=== PATIENT | male | born 1970 | race Caucasian/White ===

== ENCOUNTER 2019-06-06 01:54 | Emergency (ER) | payer BC ==
[2019-06-06] MEDS ORDERED: Metoprolol Tartrate 5 MG/5 ML VIAL ONE ×2 (02:12→02:25)
[2019-06-06] MEDS ORDERED: Nitroglycerin 0.4 MG TAB 1 EACH ONE (02:12)
[2019-06-06] MEDS ORDERED: Aspirin Chewable 81 MG TAB ONE (02:12)
[2019-06-06 02:18] LABS: #Basophils 0.1 thou/uL (0.0-0.2); #Eosinphils 0.3 thou/uL (0.0-0.7); #Lymphocytes 2.6 thou/uL (1.20-3.40); #Monocytes 0.6 thou/uL (0.11-0.59); #Neutrophils 4.5 thou/uL (1.40-6.50); %Eosinophils 3.4 % (0.0-10.0); %Lymphocytes 32.6 % (21.0-51.0); %Monocytes 7.4 % (0.0-10.0); %Neutrophils 55.7 % (42.0-75.0); Hemoglobin 13.8 g/dL (14.0-18.0); Mean Corpuscular HGB CONC 33.5 g/dL (32.0-36.0); Mean Corpuscular Hemoglobin 31.1 pg (27.0-31.0); Mean Corpuscular Volume 92.8 fL (78.0-98.0); Mean Platelet Volume 7.3 fL (7.4-10.4); Platelet Count 231 thou/uL (130-400); RBC Distribution Width 11.6 % (11.5-14.5); Red Blood Cell (RBC) Count 4.44 mill/uL (4.70-6.10)
[2019-06-06] MEDS ORDERED: Metoprolol Tartrate 50 MG TAB ONE (02:25)
[2019-06-06 02:31] LABS: ALT (SGPT) 20 U/L (8-55); AST (SGOT) 20 U/L (5-34); Albumin 4.1 g/dL (3.5-5.0); Alkaline Phosphatase 54 U/L (40-150); Anion Gap 15 mmol/L (10-20); BUN (Urea Nitrogen) 18 mg/dL (8.9-20.6); Bilirubin, Total 0.3 mg/dL (0.2-1.2); CK (CPK) 251 U/L (30-200); Calc. Creatinine Clearance 0 mL/min (70-130); Calcium 9.2 mg/dL (7.8-10.44); Carbon Dioxide 25 mmol/L (22-29); Estimated GFR-MDRD 62; Globulin 3.1 g/dL (2.4-3.5); Glucose 143 mg/dL (70-105); Potassium 3.5 mmol/L (3.5-5.1); Protein, Total 7.2 g/dL (6.0-8.3); Sodium 140 mmol/L (136-145)
[2019-06-06 02:38] LABS: Chloride 104 mmol/L (98-107)
[2019-06-06 03:08] LABS: CKMB 3.4 ng/mL (0-6.6)
[2019-06-06 03:39] LABS: Bilirubin Negative (Negative); Blood, Urine Negative (Negative); Clarity Clear (Clear); Glucose, Urine (Dipstick) Negative (Negative); Leukocyte Negative (Negative); Nitrite Negative (Negative); Protein, Urine (Dipstick) Negative (Neg-Trace); Urobilinogen 0.2 mg/dL (Less than 2)
[2019-06-06 03:48] LABS: Amphetamine Not Detected (NotDetected); Barbiturates Screen Not Detected (NotDetected); Benzodiazepine Screen Not Detected (NotDetected); Cocaine Metabolite Screen Not Detected (NotDetected); Medtox Control Line Valid? VALID (VALID); Methadone Not Detected (NotDetected); Methamphetamine Not Detected (NotDetected); Opiate Screen Not Detected (NotDetected); Oxycodone Screen Not Detected (NotDetected); Phencyclidine (PCP) Not Detected (NotDetected); THC/Cannabinoid Screen Not Detected (NotDetected); Tricyclic Screen Not Detected (NotDetected)
--- NOTE | 2019-06-06 09:01 | RAD ---
CHEST 1 VIEW: HISTORY: Pain. COMPARISON: None. FINDINGS: Magnified cardiac silhouette due to portable technique. Lungs and pleural spaces are clear. No pneu mothorax or osseous abnormalities. IMPRESSION: No acute cardiopulmonary process. POS: [facility]
== END 2019-06-06 03:42 | disposition short-term general hospital (02) ==
LOC: MADERS 01:54
DX: I21.4 Non-ST elevation (NSTEMI) myocardial infarction (principal); I48.92 Unspecified atrial flutter
CPT/HCPCS: 71045; 80053; 80306; 81003; 82550; 82553; 83880; 84484; 85025; 93005; 94760; 96374

== ENCOUNTER 2019-06-19 15:12 | Outpatient (CLI) | payer BC ==
[2019-06-19 15:34] LABS: INR-International Normal Ratio 2.3; Prothrombin Time 25.2 SEC (12.0-14.7)
== END 2019-06-19 15:13 | disposition home or self-care (01) ==
LOC: MADLABBHPM 15:12
PROVIDERS: ATTEND Family Medicine
DX: Z51.81 Encounter for therapeutic drug level monitoring (principal); Z95.1 Presence of aortocoronary bypass graft; Z79.01 Long term (current) use of anticoagulants
CPT/HCPCS: 36415; 85610

== ENCOUNTER 2022-07-06 11:12 | Outpatient (CLI) | payer BC ==
[2022-07-06 11:30] LABS: Prothrombin Time 22.9 sec (12.0-14.7)
== END 2022-07-06 11:13 | disposition home or self-care (01) ==
LOC: MADLAB 11:12
PROVIDERS: ATTEND Internal Medicine Cardiovascular Disease
DX: I48.0 Paroxysmal atrial fibrillation (principal)
CPT/HCPCS: 36415; 85610

== ENCOUNTER 2022-08-21 15:55 | Outpatient (CLI) | payer BC | END 2022-08-21 15:56 | disposition home or self-care (01) | LOC: MADRAD 15:55 | PROVIDERS: ATTEND Family Medicine | DX: M54.50 Low back pain, unspecified (principal); M47.816 Spondylosis without myelopathy or radiculopathy, lumbar region; M51.36 Other intervertebral disc degeneration, lumbar region; M43.16 Spondylolisthesis, lumbar region | CPT/HCPCS: 72100 ==

== ENCOUNTER 2023-12-25 10:55 | Emergency (ER) | payer BC ==
[2023-12-25 11:51] LABS: #Basophils 0.1 thou/uL (0.0-0.2); #Eosinphils 0.3 thou/uL (0.0-0.7); #Lymphocytes 1.2 thou/uL (1.20-3.40); #Monocytes 0.7 thou/uL (0.11-0.59); #Neutrophils 5.3 thou/uL (1.40-6.50); %Lymphocytes 15.5 % (21.0-51.0); %Monocytes 8.7 % (0.0-10.0); %Neutrophils 70.8 % (42.0-75.0); Hematocrit 34.8 % (42.0-52.0); Hemoglobin 11.4 g/dL (14.0-18.0); Mean Corpuscular HGB CONC 32.7 g/dL (32.0-36.0); Mean Corpuscular Hemoglobin 32.7 pg (27.0-31.0); Mean Corpuscular Volume 100.1 fl (78.0-98.0); Mean Platelet Volume 7.3 fL (7.4-10.4); Platelet Count 268 10x3/uL (130-400); RBC Distribution Width 12.7 % (11.5-14.5); Red Blood Cell (RBC) Count 3.48 mill/uL (4.70-6.10); White Blood Cell (WBC) Count 7.5 10x3/uL (4.8-10.8)
[2023-12-25 11:58] LABS: INR-International Normal Ratio 2.1; Prothrombin Time 23.5 sec (12.0-14.7)
== END 2023-12-25 13:10 | disposition home or self-care (01) ==
LOC: MADERS 10:55
DX: S40.021A Contusion of right upper arm, initial encounter (principal); D64.9 Anemia, unspecified; I10 Essential (primary) hypertension; Z79.01 Long term (current) use of anticoagulants; Z79.899 Other long term (current) drug therapy; W18.30XA Fall on same level, unspecified, initial encounter
CPT/HCPCS: 36415; 82550; 85025; 85610